=== PATIENT | female | born 1950 | race Asian ===

== ENCOUNTER 2023-10-30 06:32 | Inpatient (IN) | payer OTHER ==
[2023-10-30] MEDS: SODIUM CHLORIDE 1,000 ML IV STA (08:08)
[2023-10-30 08:19] LABS: BASO % 0.3 % (0-2.0); HEMATOCRIT 32.8 % (32.4-45.2); HEMOGLOBIN 10.3 GM/dL (10.7-15.3); LYMPH % 5.8 % (8-40); MCHC 31.4 g/dl (32.0-36.0); MEAN CELL VOLUME 58.5 fl (80-96); MEAN PLT VOLUME 7.9 fl (7.5-11.1); MONO % 5.9 % (3.8-10.2); PLATELET COUNT 415 10^3/uL (134-434); WHITE BLOOD COUNT 16.2 K/mm3 (4.0-10.0)
[2023-10-30 08:20] LABS: MCH 18.4 pg (25.7-33.7)
[2023-10-30 08:26] LABS: INR 1.11 (0.83-1.09); PROTHROMBIN TIME (PATIENT) 12.7 SEC (9.7-13.0)
[2023-10-30 08:40] LABS: CALCIUM 9.5 mg/dL (8.5-10.1)
[2023-10-30 08:41] LABS: ALBUMIN 3.6 g/dl (3.4-5.0)
[2023-10-30 08:44] LABS: CREATININE 0.7 mg/dL (0.55-1.3)
[2023-10-30 08:44] LABS: EPI CELLS 7 /uL (0-25.1); HYALINE CASTS 1 /uL (0-3.1); PH,URINE 5.5 (5.0-8.0); URINE APPEARANCE CLEAR; URINE BACTERIA 8 /uL (0-1359); URINE BILIRUBIN NEGATIVE (NEGATIVE); URINE COLOR YELLOW; URINE GLUCOSE (UA) NEGATIVE (NEGATIVE); URINE KETONE 2+ (NEGATIVE); URINE LEUK ESTERASE NEGATIVE (NEGATIVE); URINE NITRITE NEGATIVE (NEGATIVE); URINE PROTEIN TRACE (NEGATIVE); URINE RBC 42 /uL (0-23.9); URINE UROBILINOGEN 0.2 mg/dL (0.2-1.0); URINE WBC 22 /uL (0-25.8)
[2023-10-30 08:45] LABS: BILIRUBIN,TOTAL 1.8 mg/dL (0.2-1); TOT PROT 7.4 g/dl (6.4-8.2)
[2023-10-30 10:35] LABS: ANISOCYTOSIS 0; MACROCYTOSIS 0
[2023-10-30] MEDS ORDERED: PIPERACILLIN/TAZOB 3.375 GM 3.375 GM/50 ML BAG IVPB ONE (15:19)
[2023-10-30] MEDS: PIPERACILLIN/TAZOB 3.375 GM 3.375 GM in DEXTROSE 5%-WATER - 50 ML IVPB ONE (17:42)
[2023-10-30] MEDS: LACTATED RINGERS SOLUTION 1,000 ML/1,000 ML INFUS.BAG IV SCH (17:42)
[2023-10-30] MEDS ORDERED: PIPERACILLIN/TAZOB 4.5 GM 4.5 GM/100 ML BAG IVPB ONE (18:22)
[2023-10-30] MEDS: PIPERACILLIN/TAZOB 4.5 GM 4.5 GM in DEXTROSE 5%-WATER 100 ML IVPB SCH (18:37)
[2023-10-31 04:30] VITALS: BMI 19.6
[2023-10-31 07:57] LABS: BASO % 0.6 % (0-2.0); EOS % 0.1 % (0-4.5); HEMATOCRIT 28.6 % (32.4-45.2); HEMOGLOBIN 9.1 GM/dL (10.7-15.3); LYMPH % 9.4 % (8-40); MCHC 31.9 g/dl (32.0-36.0); MEAN CELL VOLUME 57.3 fl (80-96); MEAN PLT VOLUME 8.1 fl (7.5-11.1); MONO % 8.4 % (3.8-10.2); NEUT % 81.5 % (42.8-82.8); PLATELET COUNT 379 10^3/uL (134-434); RBC 4.99 M/mm3 (3.60-5.2); RDW 15.1 % (11.6-15.6); WHITE BLOOD COUNT 11.5 K/mm3 (4.0-10.0)
[2023-10-31 08:14] LABS: POTASSIUM 3.6 mmol/L (3.5-5.1)
[2023-10-31 08:17] LABS: CALCIUM 8.5 mg/dL (8.5-10.1)
[2023-10-31 08:18] LABS: BLOOD UREA NITROGEN 9.6 mg/dL (7-18)
[2023-10-31 08:19] LABS: MCH 18.2 pg (25.7-33.7)
[2023-10-31 08:21] LABS: CREATININE 0.5 mg/dL (0.55-1.3)
[2023-10-31 12:29] LABS: BILIRUBIN,DIRECT 0.5 mg/dL (0.0-0.2)
[2023-10-31 12:31] LABS: ALBUMIN 2.7 g/dl (3.4-5.0); BILIRUBIN,TOTAL 1.6 mg/dL (0.2-1); TOT PROT 5.8 g/dl (6.4-8.2)
[2023-10-31] MEDS ORDERED: MIDAZOLAM HCL 2 MG/2 ML SINGLE DOSE VIAL ONE (16:20)
[2023-10-31] MEDS ORDERED: FENTANYL CITRATE/PF 50 MCG/ML VIAL ONE (16:21)
[2023-10-31] MEDS: PIPERACILLIN/TAZOB 4.5 GM 4.5 GM in DEXTROSE 5%-WATER 100 ML IVPB SCH (19:35)
[2023-11-01 08:01] LABS: BASO % 0.4 % (0-2.0); EOS % 0.4 % (0-4.5); HEMATOCRIT 29.7 % (32.4-45.2); HEMOGLOBIN 9.4 GM/dL (10.7-15.3); MCHC 31.7 g/dl (32.0-36.0); MEAN CELL VOLUME 57.8 fl (80-96); MEAN PLT VOLUME 8.1 fl (7.5-11.1); MONO % 5.4 % (3.8-10.2); NEUT % 80.8 % (42.8-82.8); PLATELET COUNT 399 10^3/uL (134-434); RBC 5.14 M/mm3 (3.60-5.2); RDW 15.1 % (11.6-15.6); WHITE BLOOD COUNT 13.5 K/mm3 (4.0-10.0)
[2023-11-01 08:09] LABS: POTASSIUM 3.3 mmol/L (3.5-5.1)
[2023-11-01 08:10] LABS: CALCIUM 8.8 mg/dL (8.5-10.1)
[2023-11-01 08:11] LABS: ALBUMIN 2.7 g/dl (3.4-5.0); BLOOD UREA NITROGEN 11.6 mg/dL (7-18)
[2023-11-01 08:14] LABS: CREATININE 0.5 mg/dL (0.55-1.3)
[2023-11-01 08:17] LABS: BILIRUBIN,TOTAL 1.7 mg/dL (0.2-1)
[2023-11-01 08:41] LABS: MCH 18.3 pg (25.7-33.7)
[2023-11-01] MEDS: POTASSIUM CHLORIDE ORAL LIQUID 20 MEQ/15 ML PO ONE (10:24)
[2023-11-01] MEDS: LACTATED RINGERS SOLUTION 1,000 ML/1,000 ML INFUS.BAG IV SCH (16:40)
[2023-11-02] MEDS: ACETAMINOPHEN 1000 MG/100 ML BAG IVPB ONE (06:13)
[2023-11-02 08:19] LABS: HEMATOCRIT 31.1 % (32.4-45.2); HEMOGLOBIN 10.1 GM/dL (10.7-15.3); MCHC 32.4 g/dl (32.0-36.0); MEAN CELL VOLUME 57.5 fl (80-96); MEAN PLT VOLUME 7.9 fl (7.5-11.1); PLATELET COUNT 433 10^3/uL (134-434); RDW 15.4 % (11.6-15.6)
[2023-11-02 08:21] LABS: MCH 18.7 pg (25.7-33.7)
[2023-11-02 08:23] LABS: POTASSIUM 3.6 mmol/L (3.5-5.1)
[2023-11-02 08:49] LABS: CALCIUM 8.8 mg/dL (8.5-10.1)
[2023-11-02 08:50] LABS: ALBUMIN 2.8 g/dl (3.4-5.0); BLOOD UREA NITROGEN 7.8 mg/dL (7-18)
[2023-11-02 08:53] LABS: BILIRUBIN,TOTAL 1.1 mg/dL (0.2-1); CREATININE 0.5 mg/dL (0.55-1.3)
[2023-11-02 08:54] LABS: TOT PROT 6.3 g/dl (6.4-8.2)
[2023-11-02 16:39] VITALS: RESP 18
[2023-11-03] MEDS: PIPERACILLIN/TAZOB 4.5 GM 4.5 GM in DEXTROSE 5%-WATER 100 ML IVPB SCH (01:23)
[2023-11-03 09:41] LABS: HEMATOCRIT 33.3 % (32.4-45.2); HEMOGLOBIN 10.8 GM/dL (10.7-15.3); MCHC 32.6 g/dl (32.0-36.0); MEAN CELL VOLUME 57.3 fl (80-96); PLATELET COUNT 523 10^3/uL (134-434); RBC 5.81 M/mm3 (3.60-5.2); RDW 15.3 % (11.6-15.6); WHITE BLOOD COUNT 8.5 K/mm3 (4.0-10.0)
[2023-11-03 09:44] LABS: MCH 18.7 pg (25.7-33.7)
[2023-11-03 09:55] LABS: POTASSIUM 3.1 mmol/L (3.5-5.1)
[2023-11-03 09:57] LABS: CALCIUM 9.5 mg/dL (8.5-10.1)
[2023-11-03 09:58] LABS: ALBUMIN 3.2 g/dl (3.4-5.0); BLOOD UREA NITROGEN 6.2 mg/dL (7-18)
[2023-11-03 10:02] LABS: BILIRUBIN,TOTAL 0.6 mg/dL (0.2-1); CREATININE 0.6 mg/dL (0.55-1.3)
[2023-11-03] MEDS: POTASSIUM CHLORIDE ORAL LIQUID 20 MEQ/15 ML PO ONE (11:12)
[2023-11-03] MEDS ORDERED: ACETAMINOPHEN 325 MG TABLET (FP) PO PRN (12:24)
[2023-11-03] MEDS: LISINOPRIL 10 MG TABLET PO SCH (15:11)
[2023-11-04 07:38] LABS: HEMATOCRIT 33.5 % (32.4-45.2); HEMOGLOBIN 10.8 GM/dL (10.7-15.3); MCHC 32.3 g/dl (32.0-36.0); MEAN CELL VOLUME 56.8 fl (80-96); MEAN PLT VOLUME 8.4 fl (7.5-11.1); PLATELET COUNT 511 10^3/uL (134-434); RDW 15.3 % (11.6-15.6); WHITE BLOOD COUNT 7.5 K/mm3 (4.0-10.0)
[2023-11-04 07:39] LABS: MCH 18.3 pg (25.7-33.7)
[2023-11-04 07:50] LABS: POTASSIUM 3.7 mmol/L (3.5-5.1)
[2023-11-04 07:52] LABS: CALCIUM 9.4 mg/dL (8.5-10.1)
[2023-11-04 07:53] LABS: ALBUMIN 3.3 g/dl (3.4-5.0)
[2023-11-04 07:56] LABS: CREATININE 0.6 mg/dL (0.55-1.3)
[2023-11-04 07:58] LABS: BILIRUBIN,TOTAL 0.8 mg/dL (0.2-1); TOT PROT 7.1 g/dl (6.4-8.2)
[2023-11-04 14:52] VITALS: BP 144/84; PULSE 78; TEMP 98.2
== END 2023-11-04 16:20 | disposition home or self-care (01) | DRG 373 ==
LOC: JER 06:32 → JERBED 14:54 → J4W 21:13 → J6S 11-02 18:12
PROVIDERS: ADMIT Internal Medicine; ATTEND Internal Medicine
PROC: 0W9G30Z Drainage of Peritoneal Cavity with Drainage Device, Percutaneous Approach (ICD-10-PCS; principal; 2023-10-31)
DX: K35.33 Acute appendicitis with perforation, localized peritonitis, and gangrene, with abscess (principal); R55 Syncope and collapse; E86.0 Dehydration; D64.9 Anemia, unspecified; D56.3 Thalassemia minor; R10.31 Right lower quadrant pain; W18.30XA Fall on same level, unspecified, initial encounter; Y92.098 Other place in other non-institutional residence as the place of occurrence of the external cause; Y99.9 Unspecified external cause status
CPT/HCPCS: 0241U-QW; 36415; 49406; 70450-TC; 71045-TC-FY; 74177-TC; 76705-TC; 76856-TC; 77012-TC; 80048; 80053; 80076; 81003; 83735; 84484; 85025; 85027; 85610; 85730; 86140; 86850; 86900; 86901; 87040; 87070; 87075; 87076; 87086; 87116; 87205; 87206; 93005; 93010; 93306-TC; 97116-GP; 97162-GP; 99285-25; G0463; J0131; Q9967

== ENCOUNTER 2024-01-17 05:13 | Day surgery (SDC) | payer OTHER, MEDICARE ==
[2024-01-16 10:20] VITALS: BMI 18.3
[2024-01-17 08:34] VITALS: TEMP 97.8
[2024-01-17 09:19] VITALS: BP 127/58; PULSE 70; RESP 19
== END 2024-01-17 09:30 | disposition home or self-care (01) ==
LOC: JASU-ENDO 05:13
PROVIDERS: ATTEND Internal Medicine Gastroenterology
PROC: 0DBH8ZX Excision of Cecum, Via Natural or Artificial Opening Endoscopic, Diagnostic (ICD-10-PCS; principal; 2024-01-17 08:00)
DX: Z12.11 Encounter for screening for malignant neoplasm of colon (principal); K63.5 Polyp of colon; K57.30 Diverticulosis of large intestine without perforation or abscess without bleeding; K62.89 Other specified diseases of anus and rectum
CPT/HCPCS: 88305-TC

== ENCOUNTER 2024-02-17 04:26 | Day surgery (SDC) | payer OTHER, MEDICARE ==
[2024-02-15 16:21] VITALS: BMI 18.7
[2024-02-17] MEDS ORDERED: BUPIVACAINE HCL/PF 0.5% (5MG/ML) 10 ML VIAL ONE (10:47)
[2024-02-17] MEDS ORDERED: PROPOFOL 20 ML ONE ×2 (11:12→12:20)
[2024-02-17] MEDS ORDERED: MIDAZOLAM HCL 2 MG/2 ML SINGLE DOSE VIAL ONE (11:12)
[2024-02-17] MEDS ORDERED: ROCURONIUM BROMIDE 50 MG/5 ML SYRINGE ONE (11:13)
[2024-02-17] MEDS: ceFAZolin 2 GRAM PREMIX BAG IVPB ONE (11:43)
[2024-02-17] MEDS ORDERED: ePHEDrine SULFATE 50 MG/1 ML AMPULE ONE (11:44)
[2024-02-17] MEDS: BUPIVACAINE HCL/PF 0.5% (5 MG/ML) 30 ML VIAL IJ ONE (11:54)
[2024-02-17] MEDS ORDERED: GLYCOPYRROLATE 0.2 MG/1 ML VIAL ONE (11:59)
[2024-02-17] MEDS ORDERED: SUGAMMADEX SODIUM 200 MG/2 ML VIAL ONE (12:52)
[2024-02-17] MEDS ORDERED: LACTATED RINGERS SOLUTION 1,000 ML IV SCH (13:15)
[2024-02-17 15:10] VITALS: PULSE 65
[2024-02-17 15:56] VITALS: BP 144/68; RESP 20; TEMP 97.7
== END 2024-02-17 16:10 | disposition home or self-care (01) ==
LOC: JASU-SURG 04:26
PROVIDERS: ATTEND Surgery
PROC: 0DTJ4ZZ Resection of Appendix, Percutaneous Endoscopic Approach (ICD-10-PCS; principal; 2024-02-17 11:00)
DX: K36 Other appendicitis (principal)
CPT/HCPCS: 88304-TC; 94760